=== PATIENT | male | born 1980 | race Asian ===

== ENCOUNTER 2021-03-22 09:14 | Emergency (ER) | payer SELFPAY ==
[~2021-03-22] VITALS: Ht 172.7 cm; Wt 60.8 kg
[2021-03-22 09:16] VITALS: BP 120/92
== END 2021-03-22 12:42 | disposition home or self-care (01) ==
LOC: EDBD 09:14 → ER 09:14
DX: S09.90XA Unspecified injury of head, initial encounter (principal); T14.8XXA Other injury of unspecified body region, initial encounter; X58.XXXA Exposure to other specified factors, initial encounter; Y93.89 Activity, other specified; Y92.89 Other specified places as the place of occurrence of the external cause; Y99.8 Other external cause status; V49.9XXA Car occupant (driver) (passenger) injured in unspecified traffic accident, initial encounter
CPT/HCPCS: 70450